=== PATIENT | female | born 1995 | race Caucasian/White ===

== ENCOUNTER 2021-02-08 14:23 | Day surgery (SDC) | payer BC ==
[2021-02-08 14:49] VITALS: BMI 25.9
== END 2021-02-08 15:30 | disposition home or self-care (01) ==
LOC: CSHLD/OP 14:23
PROVIDERS: ATTEND Obstetrics & Gynecology
DX: O36.8130 Decreased fetal movements, third trimester, not applicable or unspecified (principal); O34.211 Maternal care for low transverse scar from previous cesarean delivery; Z3A.34 34 weeks gestation of pregnancy; Z79.899 Other long term (current) drug therapy; Z88.0 Allergy status to penicillin
CPT/HCPCS: 99282